=== PATIENT | female | born 1985 | race Two or more races ===

== ENCOUNTER 2023-10-29 00:20 | Emergency (ER) | payer OTHER, SELFPAY ==
[2023-10-29 00:23] VITALS: BP 113/53; PULSE 69; RESP 16; TEMP 36.3; O2SAT 97
[2023-10-29] MEDS: LACTATED RINGERS 1000 ML 1,000 ML IV (01:30)
[2023-10-29] MEDS: MECLIZINE HCL 25 MG TABLET PO (01:33)
[2023-10-29] MEDS: predniSONE 10 MG TABLET 20 MG PO (01:33)
--- NOTE | 2023-10-29 01:35 | ED.GENADULT ---
HPI - General Adult General Chief complaint: Nausea/Vomiting Stated complaint: nausea Time Seen by Provider: 10/29/23 01:08 Source: patient Mode of arrival: ambulatory Limitations: no limitations History of Present Illness HPI narrative: 38-year-old healthy female presents the emergency department for evaluation of vertigo symptoms. Has similar episode 1-2 years ago and does have a family history of similar symptoms in her mom and brother. Patient reports that when she awoke yesterday morning, she had a slight feeling of room spinning that lasted less than 10 seconds when she got up to go to the bathroom. This was at approximately 5:00 a.m.. She went about her morning routine normally with no return of symptoms. At about 10:00 a.m. while working, she had another episode that lasted about twice as long but did spontaneously resolved. She had some intermittent short dizzy, vertiginous spells then through the day. She started to feel better so she you worked out, had a protein shake, showered and then went to lie down for the night. She laid down and then when she rolled over in bed, she had a similar bout of vertigo which she describes as room spinning and nausea. No headache. This lasted for about a minute before she threw up and she has continued to have feeling of spinning any time she moves her head now. No ear pain or trauma but she does have a feeling of fullness in her right ear. No recent head injury, no new medications, no history of hypertension. No stroke-like symptoms such as vision changes, numbness or tingling, weakness. She does not take any blood thinners. Has not tried any interventions to help with her symptoms. EMS administered Zofran which she states has not helped her nausea or vertigo but she has not vomited since she received the medication. Reports that her past medical history is benign, no major long-term health problems. No allergies. Nonsmoker. ROS notable for the neurological symptoms as above only, otherwise denies times 12 systems. Related Data Previous Rx's ?Medication ?Instructions ?Recorded meclizine 25 mg tablet 25 mg PO BID PRN #20 tabs 10/29/23 ondansetron 4 mg disintegrating 4 mg PO Q8H PRN nausea and 10/29/23 tablet vomiting #10 tabs Allergies Allergy/AdvReac Type Severity Reaction Status Date / Time No Known Drug Allergies Allergy Verified 10/29/23 00:26 [facility] Social History Smoking Status: Never smoker Non-prescribed substance use: denies use Exam Const: Vital Signs, click to edit/add: Vital Signs - 24 hr 10/29/23 00:23 Temperature 97.3 F L Pulse Rate [Pulse Oximeter] 69 Respiratory Rate 16 Blood Pressure [Ri ght Upper Arm] 113/53 L Pulse Oximetry 97 Oxygen Delivery Me thod Room Air Documenting provider has reviewed patient's vital signs: yes Common normals: no apparent distress General appearance: cooperative, comfortable and well kempt HENMT: Common normals: normocephalic and head/scalp atraumatic Head and scalp: normocephalic and atraumatic Other: Right ear canal with cerumen impaction, gently cleared with curette. She did notice some relief already with just the curetted and clearing of the ear. Left TM is perfectly normal. Oropharynx with acyanotic lips, moist membranes, normal posterior pharynx Eye: Common normals: PERRL, EOMs intact bilaterally and conjunctivae normal Conjunctiva: conjunctiva(e) normal Pupil: PERRL Other: Horizontal nystagmus on [place]-Hallpike maneuver with reported symptoms turning head to left. Neck & C-Spine: Common normals: full ROM and no lymphadenopathy Resp: Common normals: normal respiratory effort, no use of accessory muscles and clear to auscultation bilaterally Effort & inspection: able to speak in complete sentences Auscultation: clear to auscultation bilaterally Cardio: Common normals: regular rate, regular rhythm, S1 normal heart sound and S2 normal heart sound Rate: regular rate Rhythm: regular rhythm Heart sounds: S1 normal and S2 normal Extremity: Common normals: normal to inspection, full ROM and normal capillary refill Neuro: Common normals: CN's II-XII intact bilaterally, moves all extremities and no focal motor deficits Coordination/balance: [id number]-hq-abuv test normal and Normal rapid alternating movements of the distal upper extremity present (Neuro) Speech: speech normal Motor exam: strength 5/5 throughout and no movement abnormalities noted Coordination: xrbqyo-ep-czdi test normal and rapid alternating movement UE normal Psych: Common normals: speech normal Appearance: well kempt Attitude: engaged Activity/motor behavior: appropriate eye contact Speech: normal speech Mood and affect: euthymic mood Insight: insight good Judgement: judgment good Skin: Common normals: no rashes or lesions noted General skin exam: no rashes or lesions noted Course Course ED Course: Reported dizziness, vertiginous in nature, with exam is suggestive of benign positional vertigo. No features of stroke, neurological disorder, migrainous process, hemorrhage, Cat's palsy or other similar etiology. No fevers, signs of sepsis or other sequelae of infection. Vomiting has improved after Zofran but still reporting symptoms. Will give 1 L of LR, 20 of prednisone and 25 of meclizine. Will perform Mio maneuvers after these interventions. Did get some relief with curettage of cerumen in right ear canal. Await clinical response. Reevaluation(s) Reevaluation #1: Patient tolerated the oral medications well. I let these worked for about 35 minutes and then we attempted Mio maneuvers. She did have a single bout of vomiting shortly after the up please but then reported that she was feeling quite a bit better. Counseled to be off of work today, no driving until she is feeling better. Symptoms will typically last 24-48 hours. Lots of fluids, salty foods encouraged. Rest. Return to the ED if she still unable to hold down fluids after 24 hours or has any neurological worsening of any kind. She verbalizes understanding and agreement. Discussed prescriptions for meclizine both during this vertigo attack and also to use at the 1st sign of symptoms in the future. Prescription sent to pharmacy. Supply of Zofran for nausea and vomiting for the next couple of days though we counseled that this is often not as effective as rest. I do not recommend subsequent doses of prednisone, only the dose given here in the ED. patient verbalizes understanding and agreement and has family to bring her home. Vital Signs Vital signs: Initial Vital Signs Temperature 97.3 F L 10/29/23 00:23 Temperature Source Temporal Artery Scan 10/29/23 00:23 Pulse Rate 69 10/29/23 00:23 Respiratory Rate 16 10/29/23 00:23 Blood Pressure 113/53 L 10/29/23 00:23 Blood Pressure Mean 73 10/29/23 00:23 Blood Pressure Position Sitting 10/29/23 00:23 Pulse Oximetry 97 10/29/23 00:23 Oxygen Delivery Method Room Air 10/29/23 00:23 Vital Signs Temperature 97.3 F L 10/29/23 00:23 Pulse Rate 69 10/29/23 00:23 Respiratory Rate 16 10/29/23 00:23 Blood Pressure 113/53 L 10/29/23 00:23 Pulse Oximetry 97 10/29/23 00:23 Oxygen Delivery Method Room Air 10/29/23 00:23 Temperature 97.3 F L 10/29/23 00:23 Pulse Rate 69 10/29/23 00:23 Respiratory Rate 16 10/29/23 00:23 Blood Pressure 113/53 L 10/29/23 00:23 Pulse Oximetry 97 10/29/23 00:23 Oxygen Delivery Method Room Air 10/29/23 00:23 Medications Administered Medications: Generic Name Dose Route Start Last Admin Trade Name Freq PRN Reason Stop Dose Admin Lactated Ringer's 1,000 mls @ 1,000 mls/hr 10/29/23 01:26 10/29/23 01:30 Lactated Ringers 1000 Ml IV 10/29/23 02:25 1,000 mls/hr .Q1H ONE Administration Meclizine HCl 25 mg 10/29/23 01:26 10/29/23 01:33 Meclizine Hcl 25 Mg Tablet PO 10/29/23 01:27 25 mg ONCE ONE Administration Prednisone 20 mg 10/29/23 01:26 10/29/23 01:33 Prednisone 10 Mg Tablet PO 10/29/23 01:27 20 mg ONCE ONE Administration Discharge Plan Discharge Clinical Impression: Benign paroxysmal positional vertigo Patient Disposition: Home w/ Parent or Adult Condition: Stable Instructions: Benign Paroxysmal Positional Vertigo (ED) Additional Instructions: As we discussed, there are no signs of any stroke or other dangerous cause for your vertigo. Unfortunately those that are prone to vertigo do tend to get it again. Symptoms will typically last 2-3 days. Your given Zofran which is an anti nausea medicine by the ambulance crew. Unfortunately, it is not terribly effective in treating vertigo. You were given prednisone which is an anti-inflammatory medicine and meclizine which targets the vertigo more directly here in the emergency department as well as some IV fluids. Unfortunately, these do not make the vertigo go away entirely but for many, they can lessen the symptoms somewhat. We also did maneuvers called Mio maneuvers that for some can help reposition the crystals in the ear that are causing the vertigo. If it works for you, you should feel quite a bit better in an hour or 2. I will give you a handout to continue doing these similarly at home for the next couple of days. I have given you a prescription for meclizine which is a medicine use to treat or prevent the vertigo. As we discussed, I would love for you to use this in the future at the 1st sign of a vertigo attack like you had yesterday morning. For many, this can prevent things from worsening into a full-blown attack like you are having today. I will also give you some Zofran which is an anti nausea medicine. It may help reduce vomiting and allow you to stay better hydrated. Make sure you are drinking plenty of fluids and eat salty foods today to help reduce your symptoms. If you are still unable to hold down fluids after 24 hours, you should return to an emergency department. You should not drive until you are feeling better. I will give you a note to be off of work today. Come back to the emergency department sooner if you have stroke-like symptoms or other unusual neurological changes. Kareem comentamos, no hay signos de erin?n derrame cerebral u otra causa peligrosa para anderson v?rtigo. Desafortunadamente, aquellos que son propensos al v?rtigo tienden a sufrirlo nuevamente. Los s?ntomas suelen durar de 2 a 3 d?as. El personal de la ambulancia le dylan Zofran, que es un medicamento contra las n?useas. Desafortunadamente, no es muy eficaz para tratar el v?rtigo. Le administraron prednisona, que es un medicamento antiinflamatorio, y meclizina, que ataca el v?rtigo m?s directamente aqu? en el departamento de emergencias, as? kareem algunos l?quidos por v?a intravenosa. Desafortunadamente, estos no hacen que el v?rtigo desaparezca por completo, amanda para muchos pueden disminuir un poco los s?ntomas. Tambi?n hicimos maniobras llamadas maniobras de Mio que para algunos pueden ayudar a reposicionar los maryann en el o?do que est?n causando el v?rtigo. Si funciona para usted, deber?a sentirse un poco mejor en marni o dos horas. Le zaina? un folleto para que contin?e haciendo esto de manera similar en casa umer los pr?ximos d?as. Le he recetado meclizina, que es un medicamento que se utiliza para tratar o prevenir el v?rtigo. [place] comentamos, me encantar?a que usaras esto en el futuro ante la primera se?al de un ataque de v?rtigo kareem el que tuviste ghanshyam por la ma?preet. Para muchos, esto puede evitar que las cosas empeoren y se conviertan en un ataque en toda mar kareem el que est? sufriendo hoy. Tambi?n te zaina? Zofran, que es un medicamento contra las n?useas. Puede ayudar a reducir los v?mitos y permitirle mantenerse mejor hidratado. Aseg?rese de beber muchos l?quidos y comer alimentos salados hoy para ayudar a reducir patti s?ntomas. Si a?n no puede retener l?quidos despu?s de 24 horas, debe regresar al departamento de emergencias. No debe conducir hasta que se sienta mejor. Te zaina? marni nota para que no est?s en el trabajo hoy. Regrese al departamento de emergencias antes si tiene s?ntomas similares a los de un derrame cerebral u otros cambios neurol?gicos inusuales. Activity Level: Light activity Discharge Diet: Regular Prescriptions: New meclizine 25 mg tablet 25 mg PO BID PRNQty: 20 1RF Rx Instructions: to treat or prevent vertigo ondansetron 4 mg tablet,disintegrating 4 mg PO Q8H PRN (Reason: nausea and vomiting) Qty: 10 0RF Follow Up/Referrals: Provider,Not a Local [Primary Care Provider] - Stand Alone Forms: [employer] Info Instructions
--- OUTSIDE RECORDS SUMMARY | 2023-10-29 01:36 | XMS_ITS | Encounter Summary ---
Author Organization [facility] Address [address] [place] [address] Care Team Providers Care Client Relation Specialist Name Role Phone Dori Dodson APRN, CNM Primary Care Provider [phone] Encounter Details Date Type Department Care Team (Late st Contact Info) Description 06/20/2015 Scanned History External to [facility], Provider [facility] OFFICE VISIT Social History Tobacco Use Types Packs/Day Years Used Date Smoking Tobacco: Never Alcohol Use Standard Drinks/Week Comments No 0 (1 standard drink = 0.6 oz pur e alcohol) Sex and Gender Information Value Date Recorded Sex Assigned at Not on file Gender Identity Not on file Sexual Orientation Not on file documented as of this encounter Plan of Treatment Not on file documented as of this encounter Visit Diagnoses Not on filedocumented in this encounter Care Teams Client Relation Specialist Relationship Specialty Start Date End Date Dori Dodson APRN, CNM [address] [place] [address] PCP - General Obstetrics Gynecology 05/10/15 documented as of this encounter
--- OUTSIDE RECORDS SUMMARY | 2023-10-29 01:36 | XMS_ITS | Clinical Summary ---
Author Organization [facility] Address [place], [place] [address] Care Team Providers Care Teacher Citizenship Name Role Phone Dori Dodson Sanjay CARPENTER Primary Care Provider [phone] Allergies No known active allergies Medications Medication Sig Dispensed Refills Start Date End Date Status acetaminophen (TYLENOL) 325 mg tabletIndications :Bleeding in early Take 1-2 tablets by mouth every 6 hours if needed for Pain. Max acetaminophen dose: 4000mg in 24 hrs. 30 tablet 05/09/2015 Active VIT/IRON FUMARATE/FA (RIGHT STEP VITAMINS ORAL) Take by mouth once daily. Active hydrOXYzine pamoate (VISTARIL) 50 mg capsuleIndication s:34 weeks gestation of Take 1 capsule by mouth at bedtime if needed for Other (Specify) (for sleep) for up to 10 doses. 10 capsule 03/02/2016 Active Active Problems Problem Noted Date Diagnosed Date 25 weeks gestation of 01/01/2016 Immunizations Name Administration Dates Next Due Influenza, IIV3 (Age >=3 years) 03/01/2013 Social History Tobacco Use Types Packs/Day Years Used Date Smoking Tobacco: Never Alcohol Use Standard Drinks/Week Comments No 0 (1 standard drink = 0.6 oz pur e alcohol) Sex and Gender Information Value Date Recorded Sex Assigned at Not on file Gender Identity Not on file Sexual Orientation Not on file Obstetrics History Para Term AB IAB SAB Ectopic Multiple Livin g Live Births 3 1 1 1 1 1 1 Date Outcome GA Total Labor Labor/2nd/3rd Weight Sex Type Anes PTL Nathaly A1 A5 Name Clin 008 Term 37w 0d 2.66 kg (5 lb 14 oz) F Vag None N Living Complications:None [facility] [place] 016 SAB 6w0 d Last Filed Vital Signs Vital Sign Reading Time Taken Comments Blood Pressure 108/89 01/18/2018 8:57 PM CDT Pulse 68 01/18/2018 8:57 PM CDT Temperature 36.8 ??C (98.2 ??F) 01/18/2018 8:57 PM CD T Respiratory Rate 16 01/18/2018 8:57 PM CDT Oxygen Saturation 100% 01/18/2018 8:57 PM CDT Inhaled Oxygen Concentration - - Weight 55.8 kg (123 lb) 01/18/2018 2:35 PM CDT Height 167.6 cm (5' 6) 01/18/2018 2:35 PM CDT Body Mass Index 19.85 01/18/2018 2:35 PM CDT Plan of Treatment Health Maintenance Due Date Last Done Comments Tdap 1998 Depression screening for age 12+ 1999 HIV for age 15-65 2002 Hepatitis C screening for ag e 18-79 2005 Tetanus booster 2007 Pap test for age 21-65 2008 BMI (ht and wt on same day) for age 18+ 05/09/2016 05/09/2015 COVID-19 vaccine series (2022-24 season) 2022 Influenza for age 9-49 12/28/2023 03/01/2013 Pneumococcal series for age 6-64 Aged Out No longer eligible based on patient's age to complete this topic Advance Directives * Full Code (Latest Code Status on File) Date Activated Date Inactivated Comments 03/02/2016 1:41 AM 03/02/2016 6:10 AM * Full Code Date Activated Date Inactivated Comments 01/01/2016 12:14 PM 01/01/2016 4:06 PM Care Teams Teacher Citizenship Relationship Specialty Start Date End Date Dori Dodson CNM [address] [place] [address] PCP - General 05/09/15
--- OUTSIDE RECORDS SUMMARY | 2023-10-29 01:36 | XMS_ITS | Clinical Summary ---
Author Organization [facility] Address [address] [place] [address] Care Team Providers Care Director Web Name Role Phone Dori Dodson APRN, CNM Primary Care Provider [phone] Source Comments You are receiving this document as you are listed as the primary care provider,follow-up provider, or the patient has been referred to you for consultation.This is in compliance with the Medicare and[facility] [place] [facility] Incentive Program,which states Providers who transition their patient to another setting of careor provider of care or refers their patient to another provider of care shouldprovide summary care record for each transition of care or referral. [facility] Allergies No known active allergies Medications Medication Sig Dispensed Refills Start Date End Date Status ibuprofen (MOTRIN) 600 MG tablet Take 1 Tab by mouth every 6 hours as needed for Pain. 20 Tab 0 04/04/2016 Active Additional Information Patient not taking.Reported on 02/01/2017 mometasone (NASONEX) 50 MCG/ACT nasal solutionIndications: Nasal obstruction,DNS (deviated nasal septum),Hypertrophy of nasal turbinates,Dysfuncti on of both eustachian tubes Place 2 Sprays into both nostrils daily. 17 g 11 02/07/2017 Active fluticasone (FLONASE) 50 MCG/ACT nasal solution Place 2 Sprays into both nostrils daily. 16 g 11 03/06/2017 Active Active Problems Problem Noted Date Diagnosed Date Screening for malignant neoplasm of cervix 06/20 Overview: 2017 NILM 31 y.o. PLAN: pap test 05/2019 ; Pap test history Acute left-sided back pain with sciatica 016 Immunizations Name Administration Dates Next Due Influenza IIV4 (Quadrivalent) 0.5mL (97284) 10/2016,02/28/2016 Tdap 01/31/2016,04/04/2008 Family History Medical History Relation Name Comments Diabetes, Type II Other paternal a unts Relation Name Status Comments Other Social History Tobacco Use Types Packs/Day Years Used Date Smoking Tobacco: Never Smokeless Tobacco: Never Alcohol Use Standard Drinks/Week Comments No 0 (1 standard drink = 0.6 oz pur e alcohol) Depression Answer Date Recor ded Last EPDS Total Score 0 11/13/2019 Last EPDS Self Harm Result 0-->never 11/12 Sex and Gender Information Value Date Recorded Sex Assigned at Not on file Gender Identity Not on file Sexual Orientation Not on file Last Filed Vital Signs Vital Sign Reading Time Taken Comments Blood Pressure 105/59 02/01/2017 11:44 AM CDT Pulse 73 02/01/2017 11:44 AM CDT Temperature 36.2 ??C (97.2 ??F) 02/01/2017 11:44 AM C DT Respiratory Rate 16 02/01/2017 11:44 AM CDT Oxygen Saturation 98% 04/05/2016 12:00 AM FASHION INTERN Inhaled Oxygen Concentration - - Weight 60.8 kg (134 lb) 02/07/2017 1:06 PM CDT Height 166.4 cm (5' 5.5) 02/07/2017 1:06 PM CDT Body Mass Index 21.96 02/07/2017 1:06 PM CDT Plan of Treatment Health Maintenance Due Date Last Done Comments Hep C Screening (Preventive Services) 1987 HIV Screening (Preventive Services) 2003 HepB (1) 2006 Adult Preventive Visit 06/12/2018 06/12/2016 Cervical Cancer Screening 06/12/20192016, 04/15/2014 (Completed) COVID-19 Vaccine (1 - 2022-2 4 season) 2022 Influenza (Season Ended) 2023 017, 02/28/2016 DTaP/Tdap/Td (3 - Tdap) 01/30/2026 01/31/20 16, 04/04/2008 Zoster/Shingles (1 of 2) 2037 HPV Vaccine Aged Out No longer eligi ble based on patient's age to complete this topic HepA Aged Out No longer eligi ble based on patient's age to complete this topic Hib Aged Out No longer eligi ble based on patient's age to complete this topic IPV (Polio) Aged Out No longer eligi ble based on patient's age to complete this topic MCV4 Aged Out No longer eligi ble based on patient's age to complete this topic Pneumococcal Aged Out No longer eligi ble based on patient's age to complete this topic Procedures Procedure Name Priority Date/Time Associated Diagnosis Comments PAP TEST, ROUTINE Routine 06/12/2016 2:0 9 PM FASHION INTERN Encounter for routine adult health examination without abnormal findings from Last 3 Months or Most Recently Relevant to Health Maintenance Results * Pap Test, Routine (06/12/2016 2:09 PM FASHION INTERN) Cytology, Pap (NOTE) Block Setter Gypsum Cytology Report Patient Name: YONY GARZA Taken: 06/12/2016 Received: 06/12/2016 Reported: 06/20/2016 Physician(s): MERCEDEZ PATE ?Source of Specimen Pap Test, Routine Cervical/Endocervi nancy: ?Specimen Adequacy ?Satisfactory for evaluation. ??Endocervical component absent. ? Final Cytologic Interpretation/Res ult NEGATIVE FOR INTRAEPITHELIAL LESION OR MALIGNANCY (NILM) ?? *Electronically Signed Out By Bina Prather, ??CT (ASCP)* Bina Prather, ??CT (ASCP) ? Pap Smear History Date of Last Menstrual Period: ?? Microscopic Description Microscopic examination is performed. [facility] Department of Pathology [address] [place] [address] ??[id number] [facility] 06/12/2016 2:09 PM FASHION INTERN 06/12/2016 6:26 PM FASHION INTERN Mercedez Pate APRN, CNM LAB_1 [facility] [phone] from Last 3 Months or Most Recently Relevant to Health Maintenance Advance Directives * Full Code (Latest Code Status on File) Date Activated Date Inactivated Comments 04/03/2016 10:33 PM 04/05/2016 5:27 PM * Full Code Date Activated Date Inactivated Comments 04/03/2016 8:36 AM 04/03/2016 10:33 PM * Full Code Date Activated Date Inactivated Comments 04/03/2008 7:59 AM 04/05/2008 5:22 PM * Full Code Date Activated Date Inactivated Comments 04/03/2008 7:56 AM 04/03/2008 7:59 AM * Full Code Date Activated Date Inactivated Comments 04/02/2008 9:35 PM 04/03/2008 7:56 AM Care Teams Director Web Relationship Specialty Start Date End Date Dori Dodson APRN, PAULINE [address] [place] [address] PCP - General Obstetrics Gynecology 05/10/15
== END 2023-10-29 02:30 | disposition home or self-care (01) ==
PROVIDERS: Emergency Provider Family Medicine
DX: H81.11 Benign paroxysmal vertigo, right ear (principal); H61.21 Impacted cerumen, right ear
CPT/HCPCS: 99283; A9270; J7120; J7512